=== PATIENT | female | born 1985 | race African-American/Black ===

== ENCOUNTER 2024-01-27 01:25 | Inpatient (IN) | payer BC, OTHER ==
[2024-01-27 03:05] LABS: BASO % 0.5 % (0-2.0); EOS % 0.2 % (0-4.5); HEMATOCRIT 34.1 % (32.4-45.2); HEMOGLOBIN 11.4 GM/dL (10.7-15.3); LYMPH % 8.6 % (8-40); MCH 29.1 pg (25.7-33.7); MCHC 33.6 g/dl (32.0-36.0); MEAN CELL VOLUME 86.6 fl (80-96); MEAN PLT VOLUME 7.5 fl (7.5-11.1); MONO % 6.4 % (3.8-10.2); NEUT % 84.3 % (42.8-82.8); PLATELET COUNT 384 10^3/uL (134-434); RBC 3.94 M/mm3 (3.60-5.2); RDW 14.1 % (11.6-15.6)
[2024-01-27 03:29] LABS: POTASSIUM 3.9 mmol/L (3.5-5.1)
[2024-01-27 03:31] LABS: CALCIUM 8.9 mg/dL (8.5-10.1)
[2024-01-27 03:32] LABS: BLOOD UREA NITROGEN 7.5 mg/dL (7-18)
[2024-01-27 03:35] LABS: CREATININE 0.5 mg/dL (0.55-1.3); INR 0.94 (0.83-1.09); PROTHROMBIN TIME (PATIENT) 10.6 SEC (9.7-13.0)
[2024-01-27 03:37] LABS: ACTIVATED PTT 29.6 SECONDS (25.2-36.5)
[2024-01-27] MEDS ORDERED: FENTANYL/BUPIVACAINE/NS/PF - PCEA - 50 ML DISP.SYRIN EP ONE (03:38)
[2024-01-27] MEDS ORDERED: NALOXONE HCL 0.4 MG/ML VIAL IVPUSH PRN (03:40)
[2024-01-27] MEDS: FENTANYL/BUPIVACAINE/NS/PF - PCEA - 50 ML DISP.SYRIN EP SCH (03:40)
[2024-01-27 04:36] VITALS: BMI 25.7
[2024-01-27] MEDS: ELECTROLYTE-148 SOLN 1,000 ML IV SCH (06:10)
[2024-01-27] MEDS ORDERED: OXYTOCIN 20 UNITS in 0.9% NS 20 UNIT/1,000 ML INFUS.BAG IV ONE ×2 (06:24→08:44)
[2024-01-27] MEDS: OXYTOCIN 20 UNITS in 0.9% NS 20 UNIT/1,000 ML INFUS.BAG IV SCH (06:45)
[2024-01-27] MEDS ORDERED: IBUPROFEN 600 MG TABLET (FP) PO ONE (06:52)
[2024-01-27] MEDS: IBUPROFEN 600 MG TABLET (FP) PO PRN (07:00)
[2024-01-27] MEDS ORDERED: METHYLERGONOVINE MALEATE 0.2 MG/1 ML AMP IM PRN (07:28)
[2024-01-27] MEDS ORDERED: WITCH HAZEL 50% (TUCKS) 40 PAD/JAR PAD TP PRN (07:28)
[2024-01-27] MEDS ORDERED: BENZOCAINE 28 GM HEMORRHOIDAL OINTMENT TP PRN (07:28)
[2024-01-27] MEDS: ACETAMINOPHEN 325 MG TABLET (FP) PO PRN (21:00)
[2024-01-28] MEDS: BISACODYL 10 MG SUPP.RECT RC PRN (05:48)
[2024-01-28 09:27] LABS: BASO % 0.2 % (0-2.0); EOS % 0.4 % (0-4.5); HEMATOCRIT 30.1 % (32.4-45.2); HEMOGLOBIN 10.1 GM/dL (10.7-15.3); LYMPH % 16.9 % (8-40); MCH 29.1 pg (25.7-33.7); MCHC 33.7 g/dl (32.0-36.0); MEAN CELL VOLUME 86.3 fl (80-96); MEAN PLT VOLUME 6.9 fl (7.5-11.1); MONO % 9.1 % (3.8-10.2); NEUT % 73.4 % (42.8-82.8); PLATELET COUNT 328 10^3/uL (134-434); RBC 3.48 M/mm3 (3.60-5.2); RDW 14.2 % (11.6-15.6); WHITE BLOOD COUNT 14.9 K/mm3 (4.0-10.0)
[2024-01-28 10:32] VITALS: RESP 18
[2024-01-28] MEDS: SENNOSIDES/DOCUSATE COMBO (SENNA PLUS) TABLET (UD) PO PRN (21:11)
[2024-01-28] MEDS: BENZOCAINE 20% 57 GM BOTTLE TP PRN (23:32)
[2024-01-29 09:57] VITALS: BP 124/76; PULSE 86; TEMP 98.1
== END 2024-01-29 13:00 | disposition home or self-care (01) | DRG 807 ==
LOC: JLDR 01:25 → J3W 09:40
PROVIDERS: ADMIT Obstetrics & Gynecology; ATTEND Obstetrics & Gynecology
PROC: 10E0XZZ Delivery of Products of Conception, External Approach (ICD-10-PCS; principal; 2024-01-27)
PROC: 0KQM0ZZ Repair Perineum Muscle, Open Approach (ICD-10-PCS; 2024-01-27)
DX: O70.1 Second degree perineal laceration during delivery (principal); O69.81X0 Labor and delivery complicated by cord around neck, without compression, not applicable or unspecified; Z3A.39 39 weeks gestation of pregnancy; Z37.0 Single live birth
CPT/HCPCS: 36415; 80048; 85025; 85610; 85730; 86780; 86850; 86900; 86901